=== PATIENT | female | born 1975 | race Caucasian/White ===

== ENCOUNTER → 2018-01-27 | Outpatient (CLI) | payer OTHER ==
--- NOTE | 2018-01-30 10:55 | RADIOLOGY IMAGING REPORT ---
FACILITY: [facility] - [place] PATIENT NAME: HERNAN GARDNER : [id number] MR: [id number] V: [id number] EXAM DATE: [id number] ORDERING PHYSICIAN: GI SCHNEIDER TECHNOLOGIST: Radha Washington PROCEDURE:BILATERAL DIGITAL SCREENING MAMMOGRAM WITH CAD ASSISTED INTERPRETATION & 3D TOMOSYNTHESIS COMPARISON:None this is the patient's baseline mammogram. INDICATIONS:screening FINDINGS: Moderately dense fibroglandular tissue is seen throughout the breasts. There is a small nodular density seen in the upper portion Left breast on the Left MLO view in the anterior 1/3 best identified on Tomographic slice 40. Spot compression view and possibly a Left breast Ultrasound recommended for further evaluation. DIAGNOSTIC CATEGORY 0--INCOMPLETE: NEED ADDITIONAL IMAGING EVALUATION. RECOMMENDATIONS: ADDITIONAL MAMMOGRAPHIC VIEWS REQUIRED: LEFT BREAST. ULTRASOUND: LEFT BREAST. IMPRESSION: BIRADS 0: Incomplete. Additional views of Left breast and possibly Left breast Ultrasound recommended as described above. Dictated by: Fátima Farris M.D. on 01/27/2018 at 15:09 Transcribed by: TRACIE on 01/27/2018 at 15:22 Approved by: Fátima Farris M.D. on 01/30/2018 at 10:54 [facility]
== END ==
LOC: MAMO 09:12
PROVIDERS: ATTEND Nurse Practitioner
DX: Z12.31 Encounter for screening mammogram for malignant neoplasm of breast (principal); R92.8 Other abnormal and inconclusive findings on diagnostic imaging of breast
CPT/HCPCS: 77063; 77067

== ENCOUNTER → 2018-03-06 | Outpatient (CLI) | payer OTHER ==
--- NOTE | 2018-03-06 17:00 | RADIOLOGY IMAGING REPORT ---
FACILITY: [facility] - [place] PATIENT NAME: HERNAN GARDNER : [id number] MR: [id number] V: [id number] EXAM DATE: ORDERING PHYSICIAN: GI SCHNEIDER TECHNOLOGIST: Kati Mann PROCEDURE:LEFT DIGITAL DIAGNOSTIC MAMMOGRAM COMPARISON:None. INDICATIONS:Very small asymmetry in the superior retroareolar region of the Left breast seen on Tomography imaging only. FINDINGS: Spot compression 2D & 3D images were performed over the area of concern in the MLO position and the mediolateral view was also obtained. Breast parenchyma is dense. The question small asymmetry seen on the recent screening mammogram of 01/27/18 resolves with dedicated Spot compression. The mediolateral view likewise appears normal. The Left breast was sonographically integrated over the area of concern. Normal appearing ducts are seen. There is no evidence of a sonographic mass. DIAGNOSTIC CATEGORY 1--NEGATIVE. RECOMMENDATIONS: ROUTINE MAMMOGRAM AND CLINICAL EVALUATION. IMPRESSION: BIRADS 1: Negative. Normal additional Spot compression views and normal Ultrasound is very reassuring. Recommend routine mammographic screening. Dictated by: Cas Capellan M.D. on 03/06/2018 at 16:01 Transcribed by: TRACIE on 03/06/2018 at 16:19 Approved by: Cas Capellan M.D. on 03/06/2018 at 16:59 [facility]
--- NOTE | 2018-03-07 11:27 | RADIOLOGY IMAGING REPORT ---
[place] [facility] [place] NAME: HERNAN GARDNER : [id number] MR: [id number] V: [id number] EXAM DATE: [id number] ORDERING PHYSICIAN: GI SCHNEIDER TECHNOLOGIST: Darrin Beard RDMS, RDCS PROCEDURE:US LEFT BREAST COMPARISON:None. INDICATIONS:further evaluation HISTORY: Possible small retroaereolar Left breast nodule. FINDINGS: This is discussed under the diagnostic mammogram. Imaging over the area of concern from 10 o'clock to 2 o'clock and the anterior Left breast is completely normal. There is no evidence of underlying mass. DIAGNOSTIC CATEGORY 1--NEGATIVE. RECOMMENDATIONS: ROUTINE MAMMOGRAM AND CLINICAL EVALUATION. IMPRESSION: BIRADS 1: Negative. Routine mammographic screening. Dictated by: Cas Capellan M.D. on 03/06/2018 at 16:02 Transcribed by: TRACIE on 03/07/2018 at 9:03 Approved by: Cas Capellan M.D. on 03/07/2018 at 11:26 [facility]
== END ==
LOC: MAMO 02-03 01:05
PROVIDERS: ATTEND Nurse Practitioner
DX: R92.8 Other abnormal and inconclusive findings on diagnostic imaging of breast (principal)
CPT/HCPCS: 77061; 77065